=== PATIENT | female | born 1965 | race Caucasian/White ===

== ENCOUNTER 2022-05-03 08:23 | Emergency (ER) | payer BC ==
[~2022-05-03] VITALS: Ht 160 cm; Wt 105.0 kg
[~2022-05-03 08:23] MED LIST: BUSPAR10 MG PO; BUSPAR15 M1 PO
[2022-05-03 08:57] VITALS: BP 139/86
[2022-05-03 09:01] VITALS: BP 130/72
[2022-05-03 09:16] VITALS: BP 125/83
[2022-05-03] MEDS ORDERED: KEFLEX500 MG PO (09:27)
[2022-05-03 09:31] VITALS: BP 144/91
[2022-05-03 10:01] VITALS: BP 114/55
[2022-05-03 10:24] VITALS: BP 114/55
== END 2022-05-03 10:28 | disposition home or self-care (01) | DRG 605 ==
LOC: ED 08:23
DX: S91.011A Laceration without foreign body, right ankle, initial encounter (principal); W20.8XXA Other cause of strike by thrown, projected or falling object, initial encounter; Y93.89 Activity, other specified; Y92.009 Unspecified place in unspecified non-institutional (private) residence as the place of occurrence of the external cause